=== PATIENT | male | born 1965 | race Caucasian/White ===

== ENCOUNTER → 2020-01-28 | Outpatient (CLI) | payer MEDICARE ==
[~2020-01-28] MED LIST: FURO40TA2 PO; LISI10TA4 OR; METF500T4 PO; NICO21DI4 TD; PRED10TA2 PO; PROT1TAB2 PO; SIMV20TA2 PO; SPIR1CAP INH; SYMB80AE IN
--- NOTE | 2020-02-18 07:59 | REP ---
CT PET: REASON FOR EXAMINATION: Single pulmonary nodule. COMPARISON: None. TECHNIQUE: After the intravenous administration of 8.75 mCi of FDG 18, triplane whole body PET CT was performed from the skull base to the mid-thigh. FINDINGS: There is no abnormal hypermetabolic activity seen in the neck, chest, abdomen or pelvis. IMPRESSION: Negative PET CT. MTDD
== END ==
LOC: M PLARAD 07:29
PROVIDERS: ATTEND Internal Medicine Pulmonary Disease
DX: R91.8 Other nonspecific abnormal finding of lung field (principal)
CPT/HCPCS: 78815; A9552

== ENCOUNTER → 2021-09-21 | Outpatient (CLI) | payer MEDICARE | LOC: M RAD 10:57 | PROVIDERS: ATTEND Internal Medicine Pulmonary Disease | DX: Z12.2 Encounter for screening for malignant neoplasm of respiratory organs (principal); F17.218 Nicotine dependence, cigarettes, with other nicotine-induced disorders ==